=== PATIENT | male | born 1990 | race Caucasian/White ===

== ENCOUNTER 2016-10-22 16:27 | Emergency (ER) | payer MEDICAID | END 2016-10-22 19:10 | disposition home or self-care (01) | LOC: D.ER 16:27 | DX: A64 Unspecified sexually transmitted disease (principal) ==

== ENCOUNTER 2016-10-28 14:57 | Emergency (ER) | payer MEDICAID | END 2016-10-28 18:19 | disposition home or self-care (01) | LOC: D.ER 14:57 | DX: A64 Unspecified sexually transmitted disease (principal); R30.0 Dysuria; R39.11 Hesitancy of micturition ==

== ENCOUNTER 2018-05-22 15:43 | Emergency (ER) | payer MEDICAID ==
[~2018-05-22] VITALS: Ht 160 cm; Wt 59.1 kg
[2018-05-22 15:45] VITALS: Ht 160 cm; Wt 59.1 kg
[2018-05-22 16:11] LABS: APPEARANCE CLEAR (CLEAR); BILIRUBIN NEGATIVE (NEGATIVE); COLOR STRAW (YELLOW); GLUCOSE NEGATIVE (NEGATIVE); KETONE NEGATIVE (NEGATIVE); NITRITE NEGATIVE (NEGATIVE); PROTEIN TRACE mg/dL (NEGATIVE); SPECIFIC GRAVITY 1.005 (1.005-1.020); UROBILINOGEN NORMAL (NORMAL)
[2018-05-22 16:12] LABS: RED CELLS - URINE 0-5 /hpf (0-5)
[2018-05-22 16:13] LABS: BACTERIA FEW /hpf (NONE SEEN)
[2018-05-22] MEDS ORDERED: HYDROCODON-ACE1 EAC2 PO (18:39)
[2018-05-22 18:44] VITALS: BP 148/77
== END 2018-05-22 18:48 | disposition home or self-care (01) ==
LOC: D.ER 15:43
PROVIDERS: Family Medicine
DX: A64 Unspecified sexually transmitted disease (principal); S52.502A Unspecified fracture of the lower end of left radius, initial encounter for closed fracture; V80.010A Animal-rider injured by fall from or being thrown from horse in noncollision accident, initial encounter; Y93.52 Activity, horseback riding; Y92.89 Other specified places as the place of occurrence of the external cause